=== PATIENT | male | born 2000 | race Asian ===

== ENCOUNTER 2023-03-07 19:36 | Emergency (ER) | payer MEDICAID, SELFPAY | END 2023-03-07 21:00 | disposition home or self-care (01) | LOC: ERS 19:36 | DX: M54.31 Sciatica, right side (principal) | CPT/HCPCS: 99283 ==

== ENCOUNTER 2023-04-12 13:14 | Emergency (ER) | payer OTHER ==
[2023-04-12] MEDS ORDERED: Lidocaine 1% w/Epinephrine 1:100K 20 ML VIAL ONE (14:12)
== END 2023-04-12 15:29 | disposition home or self-care (01) ==
LOC: ERS 13:14
DX: S61.012A Laceration without foreign body of left thumb without damage to nail, initial encounter (principal); W26.0XXA Contact with knife, initial encounter; Y93.G3 Activity, cooking and baking; Y92.69 Other specified industrial and construction area as the place of occurrence of the external cause
CPT/HCPCS: 12002

== ENCOUNTER 2023-04-13 23:00 | Emergency (ER) | payer OTHER, SELFPAY ==
[2023-04-14] MEDS ORDERED: Bacitracin 1 PK ONE ×2 (00:15→00:44)
[2023-04-14] MEDS ORDERED: Ibuprofen 200 MG TAB ONE (00:57)
== END 2023-04-14 00:57 | disposition home or self-care (01) ==
LOC: ERS 23:00
DX: S61.012A Laceration without foreign body of left thumb without damage to nail, initial encounter (principal); F17.210 Nicotine dependence, cigarettes, uncomplicated; W26.9XXA Contact with unspecified sharp object(s), initial encounter
CPT/HCPCS: 99283

== ENCOUNTER 2023-04-22 11:28 | Emergency (ER) | payer SELFPAY | END 2023-04-22 12:16 | disposition home or self-care (01) | LOC: ERS 11:28 | DX: S61.012D Laceration without foreign body of left thumb without damage to nail, subsequent encounter (principal); W26.9XXD Contact with unspecified sharp object(s), subsequent encounter ==

== ENCOUNTER 2024-06-04 21:18 | Emergency (ER) | payer SELFPAY | END 2024-06-04 21:48 | disposition home or self-care (01) | LOC: ERS 21:18 | DX: H60.501 Unspecified acute noninfective otitis externa, right ear (principal); H61.21 Impacted cerumen, right ear; F17.290 Nicotine dependence, other tobacco product, uncomplicated | CPT/HCPCS: 99282 ==